=== PATIENT | female | born 1960 | race Asian ===

== ENCOUNTER → 2024-04-07 | Outpatient (CLI) | payer MEDICARE, MEDICAID, SELFPAY ==
--- NOTE | 2024-04-07 14:15 | XR_ITS ---
Examination: Screening digital mammography, bilateral Computer aided detection 3-D breast Tomosynthesis, bilateral Date and time of exam: April 07, 2024 1415 hours Compared to mammograms dating to October 15, 2009 Indication: Screening Technique: Nonmagnified MLO, CC views of the breasts to been obtained, reconstructed from 3-D Tomosynthesis images. R2 computer aided detection program utilized for evaluation of suspicious masses and/or abnormal calcifications. 3-D Tomosynthesis images obtained. Findings: Scattered areas of fibroglandular density. Benign calcifications. No interval suspicious masses Impression: BI-RADS category II: Benign Findings. Recommend 1 year follow-up mammogram.
== END | disposition home or self-care (01) ==
PROVIDERS: Referring Provider Physician Assistant; Visit Provider Physician Assistant
DX: Z12.31 Encounter for screening mammogram for malignant neoplasm of breast (principal); R92.323 Mammographic fibroglandular density, bilateral breasts; R92.1 Mammographic calcification found on diagnostic imaging of breast
CPT/HCPCS: 77063; 77067

== ENCOUNTER 2024-11-11 17:37 | Emergency (ER) | payer MEDICARE, MEDICAID, SELFPAY ==
[2024-11-11 17:38] VITALS: BMI 25.9
--- NOTE | 2024-11-11 17:42 | EKG_ITS ---
[facility] Test Date: 2024-11-11 Pat Name: JLUISSA PALMA Department: Room: - Gender: Female Engineering Faculty Member: : 1960 Requested By: ED Temporary Provider Order Number: [id number] Reading MD: ED Temporary Provider Measurements Intervals [place] Rate: 68 P: 49 [place]: 189 QRS: 23 QRSD: 111 T: 29 QT: 386 QTc: 412 Interpretive Statements SINUS RHYTHM MODERATE INTRAVENTRICULAR CONDUCTION DELAY [110+ ms QRS DURATION] NONSPECIFIC ST ELEVATION [0.05+ mV ST ELEVATION] Compared to ECG 10/22/2023 07:39:49 Intraventricular conduction delay now present ST (T wave) deviation now present First degree AV block no longer present /store/S0/[id number]/ecg/[id number].pdf
[2024-11-11 17:49] VITALS: BP 148/76; PULSE 77; RESP 18; TEMP 37.1; O2SAT 97
--- NOTE | 2024-11-11 17:59 | XR_ITS ---
Examination: PA lateral chest 2 views TECHNIQUE: Upright PA and lateral chest 2 views Date and time: November 11, 2024, 1821 hours Comparison July 02, 2021. INDICATIONS: Chest pressure and shortness of breath today. FINDINGS: Minor subsegmental atelectasis in the right middle lobe and right base Normal heart size. No pneumonia or pulmonary edema. Moderate osteopenia IMPRESSION: Minor subsegmental atelectasis in the right middle lobe and right base
--- NOTE | 2024-11-11 17:59 | PD.EDRME ---
Rapid Medical Screening Exam RME Arrival date/time: 11/11/24 17:37 64-year-old female presents to the emergency department today for complaints of shortness of breath and chest pressure Chief Complaint: Chest Pain Vital signs: Vital Signs Temperature 98.8 F 11/11/24 17:49 Pulse Rate 77 11/11/24 17:49 Respiratory Rate 18 11/11/24 17:49 Blood Pressure 148/76 H 11/11/24 17:49 Pulse Oximetry (%) 97 11/11/24 17:49 Oxygen Delivery Method Room Air 11/11/24 17:49
[2024-11-11 18:21] LABS: Basophils # (Auto) 0.0 Thou/mm3 (0.0-0.2); Basophils % (Auto) 0 % (0-2.5); Eosinophils # (Auto) 0.2 Thou/mm3 (0.0-0.5); Eosinophils % (Auto) 2 % (0-10); Hematocrit 39.1 % (36.0-46.0); Hemoglobin 12.8 g/dL (12.0-16.0); Immature Granulocytes Auto 0.04 Thou/mm3 (0.00-0.00); Lymphocytes # (Auto) 2.4 Thou/mm3 (1.0-4.8); Lymphocytes % (Auto) 27 % (10-50); Mean Corpuscular HGB Conc 32.7 g/dl (31.0-37.0); Mean Corpuscular Hemoglobin 28.6 pg (25.0-35.0); Mean Corpuscular Volume 87 fL (80-100); Monocytes # (Auto) 0.8 Thou/mm3 (0.0-0.8); Monocytes % (Auto) 9 % (0-12); Neutrophils # (Auto) 5.6 Thou/mm3 (1.8-7.7); Neutrophils % (Auto) 61 % (37-80); Nucleated Red Blood Cell # 0.00 Thou/mm3 (0.00-0.00); Nucleated Red Blood Cell % 0 /100 WBC (0); Platelet Count 293 Thou/mm3 (140-440); RDW Standard Deviation 41.3 fL (36.4-46.3); Red Blood Count 4.48 Miln/mm3 (4.00-5.20); White Blood Count 9.1 Thou/mm3 (3.6-11.0)
[2024-11-11 18:41] LABS: Alanine Aminotransferase 10 U/L (10-49); Albumin, Serum 4.1 gm/dL (3.4-4.8); Albumin/Globulin Ratio 1.5 (1.2-2.2); Alkaline Phosphatase 53 U/L (46-116); Anion Gap 6 (7-16); Aspartate Amino Transferase 18 U/L (0-34); BUN/Creatinine Ratio 13 Ratio (12-20); Bilirubin,Total 0.5 mg/dL (0.3-1.2); Blood Urea Nitrogen 12 mg/dL (9-23); Calcium 8.8 mg/dL (8.3-10.6); Calcium (Corrected) 8.8 mg/dL (8.5-10.1); Carbon Dioxide 26.4 mMol/L (20.0-31.0); Chloride 108 mMol/L (98-107); Creatinine (Component) 0.9 mg/dL (0.6-1.3); Estimated Creatinine Clearance 43.6 mL/min (>60); Free T4 (Free Thyroxine) 1.26 ng/dL (0.89-1.76); Globulin 2.8 gm/dL (2.3-3.5); Glucose 115 mg/dL (74-106); Magnesium 2.1 mg/dL (1.6-2.6); Osmolality,Calculated 280 (275-295); Potassium 3.9 mMol/L (3.4-5.1); Sodium 140 mMol/L (136-145); Thyroid Stimulating Hormone 1.42 uIU/mL (0.55-4.78); Total Protein 6.9 gm/dL (5.7-8.2); Troponin I < 0.002 ng/mL (0.0-0.045); eGFR > 60 See Note
[2024-11-11 21:44] LABS: Troponin I < 0.002 ng/mL (0.0-0.045)
--- NOTE | 2024-11-11 22:12 | PD.EDCHEST ---
ED Chest Pain RME/HPI General Chief Complaint: Chest Pain Stated Complaint: CHEST TIGHTNESS SINCE 1100 TODAY, PAIN WITH BREATH Time Seen by Provider: 11/11/24 22:04 Arrival date/time: 11/11/24 17:37 RME / HPI RME / HPI narrative: 64-year-old female patient with significant history of hypothyroidism hypertension was brought in by family for evaluation regarding posterior chest pain/scapular pain, since 11 AM this morning radiating to the front associated with shortness of breath. Patient denies any fever denies any diaphoresis. Denies any trauma or fall. Denies any other complaints. No medication was taken prior to arrival. Related Data Home Medications ?Medication ?Instructions ?Recorded ?Confirmed levothyroxine 100 mcg tablet 100 mcg PO DAILY ##0 07/15/12 08/20/18 (Levothroid) aspirin 325 mg tablet 325 mg PO DAILY ##0 07/25/12 08/20/18 omeprazole magnesium 20 mg 20 mg PO QDAY 12/19/17 08/20/18 tablet,delayed release (Prilosec OTC) Previous Rx's ?Medication ?Instructions ?Recorded metoprolol succinate 25 mg capsule 25 mg PO DAILY #30 ea 12/19/17 sprinkle, ext. release 24 hr albuterol sulfate 90 mcg/actuation 2 puff inhalation Q4H PRN 08/20/18 aerosol inhaler shortness of breath #8.5 grams diphenhydramine HCl 50 mg capsule 50 mg PO QID #20 caps 08/20/18 prednisone 10 mg tablet 30 mg (3 x 10 mg) PO BID #18 tabs 08/20/18 amoxicillin 875 mg-potassium 1 tab PO BID #14 tabs 10/22/23 clavulanate 125 mg tablet ibuprofen 800 mg tablet 800 mg PO TID PRN pain #30 tabs 10/22/23 ibuprofen 800 mg tablet 800 mg PO Q8H PRN pain #30 tabs 11/11/24 lidocaine 5 % topical patch 1 patch topical QDAY #15 ea 11/11/24 Allergies Allergy/AdvReac Type Severity Reaction Status Date / Time No Known Allergies Allergy Unknown Uncoded 11/11/24 17:41 Review of Systems Review of Systems Narrative Review of Systems: Review of system reviewed and within normal limits except mentioned in HPI ED Exam Narrative Physical exam: VITAL SIGNS: Reviewed. GENERAL APPEARANCE: Alert and interactive, follows commands, no acute distress, HEAD AND FACE: Non-traumatic. ENT: PERRL, pink conjunctivitis, eyelid no trauma, Mucous membrane moist. NECK: Supple, nontender, no nuchal rigidity. CHEST: Bilateral scapular tenderness, no swelling no deformity no rashes, no crepitus, no paradoxical movement, no retractions. LUNGS: Clear, well ventilated, symmetric, no rales, no wheezing, no ronchi, no stridor, good breath sounds bilaterally. HEART: Regular rate, regular rhythm, no murmur, no gallops. ABDOMEN: Soft, positive bowel sounds, nondistended, no guarding, nontender, no rebound, no masses, RECTAL: Deferred. GENITAL: Deferred. NEUROLOGICAL: Gross motor function intact sensory function intact, Appropriate for age. MUSCULOSKELETAL: low back nontender, full range of motion. EXTREMITIES: Nontender, full range of motion. SKIN: Color pink, dry, no rash, no lacerations, no abrasions, no contusions. LYMPHATICS: Deferred. Course Quality Measures none Orders Category Date Time Status EKG (ED ONLY) *Do not use* NOW Care 11/11/24 17:42 Completed EKG (ED Only) Stat Exams 11/11/24 17:42 Draft XR chest 2V Stat Exams 11/11/24 17:59 Completed CBC Stat Lab 11/11/24 18:08 Completed Comprehensive Metabolic Panel Stat Lab 11/11/24 18:08 Completed Free T4 (Free Thyroxine) Stat Lab 11/11/24 18:08 Completed Mag [Magnesium] Stat Lab 11/11/24 18:08 Completed TSH [Thyroid Stimulating Hormone] Stat Lab 11/11/24 18:08 Completed Troponin I Stat Lab 11/11/24 18:08 Completed Troponin I Stat Lab 11/11/24 21:08 Completed Ketorolac Inj [Toradol Inj] Med 11/11/24 22:10 Once 30 mg IM X1 ONE Vital Signs Vital signs: Vital Signs Temperature 98.8 F 11/11/24 17:49 Pulse Rate 77 11/11/24 17:49 Respiratory Rate 18 11/11/24 17:49 Blood Pressure 148/76 H 11/11/24 17:49 Pulse Oximetry (%) 97 11/11/24 17:49 Oxygen Delivery Method Room Air 11/11/24 17:49 Chest Pain MDM Narrative MDM Narrative:: 64-year-old female patient with significant history of hypothyroidism hypertension was brought in by family for evaluation regarding posterior chest pain/scapular pain, since 11 AM this morning radiating to the front associated with shortness of breath. Patient denies any fever denies any diaphoresis. Denies any trauma or fall. Denies any other complaints. No medication was taken prior to arrival. Patient's workup today including troponin x 2 all came back normal. EKG showed normal sinus rhythm, ventricular rate of 68 bpm, no ST segment elevation depression noted. Chest x-ray showed Minor subsegmental atelectasis in the right middle lobe and right base Results discussed with the patient. Family She was given Toradol with significant pulmonary pain Patient data External records reviewed:: None Clinical information provided by:: patient and family Social determinants that could affect healthcare access:: none Patient has the following chronic illnesses:: Hypertension How is presenting disease/condition affected by chronic disease/condition?: exacerbated by Evaluation data The following diagnostics were reviewed and interpreted by me:: lab results, radiology exam(s) and EKG tracing(s) Lab and/or radiology exams considered but not ordered:: None Interpretation Summary: See results [facility] Medications / Prescriptions Medications or Prescriptions considered but not ordered:: None Medication administrations:: Medication Administration History Ketorolac Tromethamine (Ketorolac Inj 60 Mg/2 Ml Vial) 30 mg IM X1 ONE Stop: 11/11/24 22:11 Toradol IM Consultations Consultation(s) initiated? (list below): No Diagnosis Chest Pain Differential Diagnosis: chest pain and other (Scapular pain, muscular pain) Most likely diagnosis given after review of the tests above:: Scapular pain, muscular Admission Indicated Admission indicated?: not indicated Explain why admission is indicated or not indicated:: Stable Admission Request Was there a request for admission?: No Disposition Plan Disposition Plan: Discharge Discharge Attestation Discharge Attestation: The patient and all family members were given an opportunity to ask questions and understood the discharge instructions. Discharge instructions specifically effects, indications for sooner follow up or return to the emergency department, and the expected course of current diagnosis. Patient condition: Stable Discharge Plan Plan Patient Disposition: HOME (Self Care) Discharge Disposition comment: Stable Prescriptions/Referrals Prescriptions/Med Rec: New ibuprofen 800 mg tablet 800 mg PO Q8H PRN (Reason: pain) Qty: 30 0RF lidocaine 5 % adhesive patch,medicated 1 patch topical QDAY Qty: 15 0RF Rx Instructions: leave on most painful area for up to 12 hrs No Action levothyroxine [Levothroid] 100 MCG tablet 100 mcg PO DAILY Qty: 0 aspirin 325 MG tablet 325 mg PO DAILY Qty: 0 Prilosec OTC 20 mg Tablet,Delayed Release (Dr/Ec) 20 mg PO QDAY metoprolol succinate 25 mg cap,sprinkle,ER 24hr dose pack 25 mg PO DAILY Qty: 30 0RF prednisone 10 mg tablet 30 mg PO BID Qty: 18 0RF Rx Instructions: administer with food or milk diphenhydramine HCl 50 mg capsule 50 mg PO QID Qty: 20 0RF Rx Instructions: Take 1 tablet 4 times a day on the first day and, after that, take 1 tablet 4 times a day only if necessary for itching. albuterol sulfate 90 mcg/actuation HFA aerosol inhaler 2 puff INH Q4H PRN (Reason: shortness of breath) Qty: 8.5 0RF amoxicillin-pot clavulanate 875-125 mg tablet 1 tab PO BID Qty: 14 0RF ibuprofen 800 mg tablet 800 mg PO TID PRN (Reason: pain) Qty: 30 0RF Referrals: Iqra Montes PA-C [Primary Care Provider] - In 1 week Problem List Clinical Impression: Pain of both scapulas, Chest pain, muscular Patient/Caregiver Discharge Instructions Discharge Activity: activity as tolerated Education Materials: ED Chest Pain, Noncardiac Additional Instructions: Thank you for the opportunity for serving you today. You are stable for discharged . You are advised to: Follow-up with your PCP in 1 to 2 days Return to ED for worsening of symptoms Increase oral fluids Take medication as prescribed Print Language: Sami Stand Alone Forms: Lana Award Info., Patient Portal Info Letter HILDA/FLETCHER Supervising Physician HILDA/FLETCHER Supervising Physician: MD Elias
[2024-11-11] MEDS: KETOROLAC INJ 60 MG/2 ML VIAL 30 MG IM (22:29)
[2024-11-11 22:44] VITALS: RESP 16
== END 2024-11-11 22:45 | disposition home or self-care (01) ==
PROVIDERS: Nurse Practitioner Primary Care; PCP Physician Assistant
DX: J98.11 Atelectasis (principal); R07.89 Other chest pain; M25.512 Pain in left shoulder; M25.511 Pain in right shoulder
CPT/HCPCS: 36415; 71046; 80053; 83735; 84439; 84443; 84484; 85025; 93005; 96372; 99283; J1885